=== PATIENT | male | born 1975 | race African-American/Black ===

== ENCOUNTER 2019-10-28 17:14 | Emergency (ER) | payer BC ==
[2019-10-28 17:42] VITALS: TEMP 97.3
--- NOTE | 2019-10-28 18:22 | ED.PDOC ---
History of Present Illness - General Chief Complaint: Skin/Abrasion/Tear Stated Complaint: sores on head Time Seen by Provider: 10/28/19 18:19 Source: patient Exam Limitations: no limitations - History of Present Illness Initial Comments: 43 yo M with hx of HTN, HLD, DVT currently not on any medications who presents for multiple cyst like areas throughout his head. He has shaved his head in the recent past and he believes that is what is causing them. He states he will squeeze the irritated areas and a small amount of drainage will come out and the area will clear up on its own. Reports there is a larger cyst at the top of his scalp that has drained in the past but now has returned. Denies f/c, lymphadenopathy, redness, neck pain, headache. Home Medications: Ambulatory Orders Doxycycline (Monohydrate) [Doxycycline Monohydrate] 100 mg PO BID 10 Days tab 10/28/19 Review of Systems - Review of Systems Constitutional: Denies: chills, fever EENTM: States: other - multiple cysts noted to scalp Respiratory: States: no symptoms reported Cardiology: States: no symptoms reported Gastrointestinal/Abdominal: States: no symptoms reported Musculoskeletal: States: no symptoms reported. Denies: neck pain Neurological: States: no symptoms reported. Denies: headache, numbness, weakness Past Medical History (General) - Patient Medical History Hx Stroke: No Hx Congestive Heart Failure: No Hx Hypertension: Yes Hx Diabetes: No - Vaccination History Hx Influenza Vaccination: No - Social History Hx Tobacco Use: Yes - 2 PPD Family Medical History - Family History Father Family History: Unknown Living Status: Unknown Physical Exam - Physical Exam General Appearance: Alert, Comfortable, No apparent distress, Well Developed, Well Nourished Neck: full range of motion, supple, normal inspection, other - no lymph adenopathy Respiratory: no respiratory distress Cardiovascular/Chest: normal peripheral pulses, regular rate, rhythm Comments: Several small areas of folliculitis. No abscess or cellulitis. Quarter sized cyst to top of scalp; no erythema, drainage, induration. Progress - Progress Progress: 10/28/19 18:23 I have explained and reviewed all results with the pt. I explained that emergent conditions may arise and to return to the ER for new, worsening, or any persistent conditions. I've explained the importance of f/u for recheck. All questions and concerns addressed at this time. Pt understands and agrees with plan. Pt well appearing, NAD, is stable for discharge. Annabelle Peguero MD Emergency Medicine Physician Billing Number [id number] Departure - Departure Clinical Impression: Folliculitis, Cyst Time of Disposition: 18:19 Disposition: Discharge to Home or Self Care Health Concerns: condition: stable Departure Forms: ED Discharge - Pt. Copy, Patient Portal Self Enrollment Instructions: Folliculitis (DC) Prescriptions: Doxycycline (Monohydrate) [Doxycycline Monohydrate] 100 mg PO BID 10 Days tab Home Medications: Ambulatory Orders Doxycycline (Monohydrate) [Doxycycline Monohydrate] 100 mg PO BID 10 Days tab 10/28/19 Additional Instructions: [facility], As needed, if symptoms worsen Your Primary Care Physician, make appointment, three days, for follow up Primary Care physician in the area: Dr. Munguia, Dr. Aline Stafford, Dr. [facility], make appointment in three days for follow up
[2019-10-28 18:35] VITALS: BP 138/86; O2SAT 95
== END 2019-10-28 18:35 | disposition home or self-care (01) ==
LOC: ER 17:14
DX: L72.9 Follicular cyst of the skin and subcutaneous tissue, unspecified (principal); I10 Essential (primary) hypertension; E78.00 Pure hypercholesterolemia, unspecified; Z86.718 Personal history of other venous thrombosis and embolism; Z87.891 Personal history of nicotine dependence